=== PATIENT | male | born 1935 | race Caucasian/White ===

== ENCOUNTER → 2017-03-11 | Outpatient (CLI) | payer BC ==
[~2017-03-11] MED LIST: AGG PO; CHOL100040 PO; DUTA0.5C PO; MULTCAP33 PO; SIMV20TA2 PO; TAMS0.4C38 PO; TRIA0.022 TOP; TRIATAB3 PO
[2017-03-11 11:08] LABS: BASO % 0.2 %; BASO ABS # 0.01 K/uL (0-0.2); COMPLETE YES; EOS % 2.6 %; HEMATOCRIT 43.5 % (42-52); IG% 0.3 %; LYMPH % 13.6 %; MEAN CORPUSCULAR HEMOGLOBIN 29.8 pg (25-34); MEAN CORPUSCULAR HGB CONC 32.4 g/dl (32-36); MEAN PLATELET VOLUME 10.5 fL (7.4-10.4); MONO % 14.2 %; NEUT % 69.1 %; PLATELET COUNT 260 K/uL (130-400); RED BLOOD COUNT 4.73 M/uL (4.7-6.1)
[2017-03-11 11:23] LABS: CALCIUM 8.7 mg/dl (8.5-10.1)
[2017-03-11 11:24] LABS: ALT/SGPT 20 U/L (12-78); BLOOD UREA NITROGEN 14 mg/dl (7-18); CARBON DIOXIDE 28 mmol/L (21-32); CHLORIDE 105 mmol/L (98-107); CHOLESTEROL 121 mg/dl (0-200); GLUCOSE 92 mg/dl (70-99); POTASSIUM 4.1 mmol/L (3.5-5.1); SODIUM 139 mmol/L (136-145); TRIGLYCERIDES 60 mg/dl (0-150); VERY LOW DENSITY LIPOPROT CALC 12 mg/dl
[2017-03-11 11:28] LABS: ALB/GLOB RATIO 0.9 (0.9-2); ALKALINE PHOSPHATASE 74 U/L (45-117); AST/SGOT 19 U/L (15-37); CHOLESTEROL/HDL RATIO 2.5; HDL CHOLESTEROL 49 mg/dl; LDL CHOLESTEROL CALCULATED 60 mg/dl
== END | disposition home or self-care (01) ==
LOC: C.LABBC 09:06
PROVIDERS: ATTEND Internal Medicine
DX: H81.09 Meniere's disease, unspecified ear (principal); E55.9 Vitamin D deficiency, unspecified

== ENCOUNTER → 2017-06-20 | Outpatient (CLI) | payer BC | END | disposition home or self-care (01) | LOC: C.LABSPEC 13:11 | PROVIDERS: ATTEND Physician Assistant Medical | DX: J02.9 Acute pharyngitis, unspecified (principal) ==

== ENCOUNTER → 2017-11-23 | Outpatient (CLI) | payer BC ==
--- NOTE | 2017-11-23 12:09 | DIAGNOSTIC IMAGING REPORT ---
L FINGER(S) MIN 2 VIEWS ROUTINE CLINICAL HISTORY: 81 years-old Male presenting with FINGER PAIN. TECHNIQUE: Frontal, oblique, and lateral views of the left fifth finger were obtained. COMPARISON: None. FINDINGS: No acute fracture or malalignment. No advanced degenerative change. No radiographic soft tissue abnormality. IMPRESSION: No acute osseous injury. Electronically signed by: Jason Rosales M.D. 11/23/2017 12:08 PM Dictated Date/Time: 11/23/2017 12:07 PM
== END | disposition home or self-care (01) ==
LOC: C.RADBC 11:42
PROVIDERS: ATTEND Family Medicine Adult Medicine
DX: S69.92XA Unspecified injury of left wrist, hand and finger(s), initial encounter (principal); X58.XXXA Exposure to other specified factors, initial encounter